=== PATIENT | female | born 1955 | race Caucasian/White ===

== ENCOUNTER 2024-07-21 14:24 | Emergency (ER) | payer BC, MEDICARE ==
[~2024-07-21] VITALS: Ht 165.1 cm; Wt 58.0 kg
[~2024-07-21 14:24] MED LIST: HYDR-4383 PO
[2024-07-21 16:35] LABS: BASOPHILS # (AUTO) 0.1 X10'3 (0-0.2); BASOPHILS % (AUTO) 1.3 % (0-1); EOSINOPHILS # (AUTO) 0.2 X10'3 (0-0.9); EOSINOPHILS % (AUTO) 2.4 % (0-6); HEMATOCRIT 39.3 % (35.0-45.0); HEMOGLOBIN 12.8 g/dl (12.0-16.0); LYMPHOCYTES # (AUTO) 1.4 X10'3 (1.1-4.8); LYMPHOCYTES % (AUTO) 22.5 % (21-51); MEAN CORPUSCULAR HEMOGLOBIN 33.7 PG (27.0-31.0); MEAN CORPUSCULAR HGB CONC 32.6 g/dL (33.0-36.5); MEAN CORPUSCULAR VOLUME 103.3 FL (78-98); MEAN PLATELET VOLUME 7.3 FL (7.4-10.4); MONOCYTES # (AUTO) 0.6 X10'3 (0-0.9); MONOCYTES % (AUTO) 9.5 % (2-12); NEUTROPHILS # (AUTO) 4.1 X10'3 (1.8-7.7); NEUTROPHILS % (AUTO) 64.3 % (42-75); PLATELET COUNT 274 X10'3 (140-440); RED BLOOD COUNT 3.81 X10'6 (4.20-5.60); RED CELL DISTRIBUTION WIDTH 12.9 % (11.5-14.5); WHITE BLOOD COUNT 6.4 X10'3 (4.5-11.0)
[2024-07-21 16:45] LABS: ALANINE AMINOTRANSFERASE 62 U/L (12-78); ALBUMIN 3.6 G/DL (3.4-5.0); ALBUMIN/GLOBULIN RATIO 0.9 (1.1-1.5); ALKALINE PHOSPHATASE 71 IU/L (46-116); ANION GAP 15 (8-16); ASPARTATE AMINO TRANSFERASE 57 U/L (10-37); BILIRUBIN,TOTAL 0.5 MG/DL (0.1-1.0); BLOOD UREA NITROGEN 21 MG/DL (7-18); BUN/CREATININE RATIO 14.8 (10.0-20.0); CALCIUM 8.8 MG/DL (8.5-10.1); CHLORIDE 102 MMOL/L (99-107); CREATININE 1.42 MG/DL (0.40-0.90); ETHANOL 62 MG/DL (<10); GLUCOSE 74 MG/DL (70-104); MAGNESIUM 1.4 MG/DL (1.5-2.4); POTASSIUM 4.2 MMOL/L (3.5-5.1); SODIUM 139 MMOL/L (135-145); TOTAL CARBON DIOXIDE 21.7 MMOL/L (24-32); TOTAL PROTEIN 7.6 G/DL (6.4-8.2); eCRCL 35 ML/MIN; eGFR 37 ML/MIN
[2024-07-21 16:46] LABS: PROTHROMBIN TIME 10.2 SECONDS (9.0-12.0)
[2024-07-21] MEDS: normal saline 1000ml 1,000 ML IV SCH (16:54)
[2024-07-21] MEDS ORDERED: LISI20TA28 PO (19:48)
[2024-07-21] MEDS ORDERED: ZIPR40CA14 PO (19:48)
[2024-07-21] MEDS ORDERED: TIZA-205 PO (19:48)
[2024-07-21] MEDS ORDERED: LEVO75TA7 PO (19:48)
[2024-07-21] MEDS ORDERED: ATOR-2 PO (19:48)
[2024-07-21] MEDS ORDERED: TRAZ-256 PO (19:48)
[2024-07-21 20:37] LABS: BILIRUBIN,URINE SMALL (Neg); CLARITY,URINE SLIGHTLY CLOUDY (Clear); COLOR,URINE YELLOW (Yellow); GLUCOSE, URINE NEGATIVE (Neg); KETONES,URINE 15 mg/dl (Neg); LEUKOCYTE ESTERASE ,URINE MODERATE (Neg); NITRITES, URINE NEGATIVE (Neg); OCCULT BLOOD,URINE MODERATE (Neg); PH,URINE 5.5 (4.8-8.0); PROTEIN,URINE TRACE mg/dl (Neg); UROBILINOGEN,URINE 0.2 E.U/dL (0.2-1.0)
[2024-07-21 20:44] LABS: UA COLLECTION TYPE URINAL
[2024-07-21 20:46] LABS: BACTERIA,URINE 2+ /HPF (Neg); SQUAMOUS EPITHELIAL CELL,UR MODERATE /LPF (FEW); WBC,URINE TNTC /HPF (0-4)
[2024-07-21 20:49] LABS: URINE AMPHETAMINE SCREEN NEGATIVE (Neg); URINE BARBITUATE SCREEN NEGATIVE (Neg); URINE BENZODIAZEPINES SCREEN POSITIVE (Neg); URINE CANNABINOID SCREEN POSITIVE (Neg); URINE COCAINE SCREEN NEGATIVE (Neg); URINE METHADONE SCREEN NEGATIVE (Neg); URINE OPIATE SCREEN NEGATIVE (Neg); URINE PHENCYCLIDINE SCREEN NEGATIVE (Neg)
[2024-07-21] MEDS: atorvastatin 20mg tablet PO SCH (23:52)
[2024-07-21] MEDS: traZODone 50mg tablet PO PRN (23:52)
[2024-07-21] MEDS: tizanidine 4mg tablet PO PRN (23:52)
[2024-07-21] MEDS: lisinopril 20mg tablet PO SCH (23:54)
[2024-07-21] MEDS: ziprasidone 20mg capsule PO SCH (23:55)
[2024-07-22] MEDS: levoTHYROXINE 75mcg tablet PO SCH (07:54)
[2024-07-22 12:49] VITALS: BP 114/72; PULSE 90; RESP 16; TEMP 98.6; O2SAT 97
== END 2024-07-22 12:20 | disposition home or self-care (01) ==
LOC: ER 14:24
DX: F10.929 Alcohol use, unspecified with intoxication, unspecified (principal); R45.851 Suicidal ideations; R47.81 Slurred speech; E78.00 Pure hypercholesterolemia, unspecified; Z20.822 Contact with and (suspected) exposure to COVID-19; Y90.9 Presence of alcohol in blood, level not specified
CPT/HCPCS: 36415; 70450; 80053; 80305; 81001; 83735; 85025; 85610; 87088; 87811; 99285; G0480; J7030; 80320